=== PATIENT | female | born 1940 | race Caucasian/White ===

== ENCOUNTER 2023-11-05 17:54 | Emergency (ER) | payer MEDICARE, OTHER, SELFPAY ==
[2023-11-05 17:55] VITALS: BMI 28.5
[2023-11-05 18:03] VITALS: BP 104/54
[2023-11-05 18:42] LABS: COVID-19 Antigen Negative (Negative)
--- NOTE | 2023-11-05 19:12 | ED.GENMED ---
History of Present Illness
General
Chief Complaint: Breathing Problem
Source: patient and family
Exam Limitations: none
Time Seen by Provider: 11/05/23 18:59
Nursing documentation reviewed up to this point in time: agreed with
Travel History
Have you had any contact with someone who has COVID-19?: No
Do you have any symptoms of coronavirus? Fever > 100 degrees, chills, cough, shortness of breath, sore throat, loss of taste or smell, muscle aches, or headache?: Yes
Symptoms:: cough
History of Present Illness
History of Present Illness:
83-year-old female PAF on Eliquis hypertension followed by Dr. Pope's about 2 weeks of some leg cramps, few days of shortness of breath dyspnea on exertion chills some upper abdominal pain nausea headache
Nondrinker non-smoker no sick contacts, she has had decreased p.o. intake,
Past History
Past History
ED Past Medical History: Arrthythmia
ED Past Surgical History: Cholecystectomy and Gynecological
Social History
Tobacco: Non-smoker
Alcohol: None
Drug: None
Personal: Single
Living: with family
Employment: Employed
Review of Systems
Review of Systems
All Other Systems: Not applicable
Constitutional: Reports fatigue and chills
EENT: Reports no symptoms
Respiratory: Reports cough and trouble breathing
Cardiac: Reports no symptoms; Denies chest pain or syncope
ABD/GI: Reports abdominal pain and nausea
: Reports no symptoms
Musculoskeletal: Reports muscle stiffness
Skin: Reports no symptoms
Neurological: Reports headache and weakness
Endocrine: Reports no symptoms
Hematologic/Lymphatic: Reports no symptoms
Phy Exam
Physical Exam
Physical Exam:
Physical Exam
General: no apparent distress, not acutely ill
Neck: Lips are slightly dry
Heart: s1/s2 regular rate and rhythm, no murmur. equal radial pulses.
Lungs: no acute respiratory distress. clear bilaterally
Abdomen: Soft minimal epigastric tenderness no guarding or rebound
Neuro: alert and oriented. no focal neurological deficits
Skin: no rash
Psychiatric: well kept. interactive and cooperative
Extremities: Trace edema no calf tenderness
Scores
Heart Failure Risk
Heart Failure Risk Score: Not Applicable
Course
Orders/Labs/Results
Orders:
Orders
11/05/23 18:09
EKG [Electrocardiogram (*1)] Urgent
Reason for Study: Shortness of Breath
EKG- Treatment ONCE
11/05/23 18:11
COVID-19 Antigen Urgent
Source: Nasal Swab
INF RAPID [Influenza A+B Rapid Molecular] Urgent
INES Source: Nasal Swab
Specimen Description:
11/05/23 19:10
Electrocardiogram (*1) Stat
Reason for Study: Other
Other Reason for Exam: chest pain
CT Head W/o Iv Contrast Urgent
Comment:
Reason For Exam: headacehe
Cardiac Monitoring- Treatment ONCE
EKG- Treatment ONCE
IV Insert/Care/Rem.- Treatment PRN
0.9% Sodium Chloride 1000 ml [Nss] 1,000 ml IV BOLUS
CR Chest - 2 Views Urgent
Comment:
Reason For Exam: sob
11/05/23 19:31
Complete Blood Count/With Diff Urgent
Comprehensive Metabolic Panel Urgent
Lipase Urgent
Magnesium Urgent
NT-proBNP Urgent
TSH Urgent
Troponin I Urgent
11/05/23 21:23
Dexamethasone Sod Phosphate [Decadron] 10 mg IV NOW STA
Doxycycline [Vibramycin] 100 mg PO NOW STA
Ipratropium/Albuterol Sulfate [Duoneb] 3 ml INH R NOW ONE
US Periph Venous LOWER Ext Ayan Urgent
Comment:
Reason For Exam: pian
11/05/23 22:09
Ondansetron Injectable [Zofran] 4 mg IV NOW STA
Abnormal Lab Results
11/05/23
19:31
RBC 3.98 L 10^6/uL
(4.20-5.40)
Hct 35.3 L %
(37.0-47.0)
Absolute Lymphs (auto) 0.7 L 10^3/uL
(1.2-3.4)
Neutrophils % 81.3 H %
(42.2-75.2)
Lymphocytes % 11.2 L %
(20.5-51.1)
Sodium 133 L mmol/L
(135-145)
BUN 23 H mg/dl
(7-17)
Glucose 121 H mg/dl
(70-99)
Total Protein 6.2 L g/dl
(6.3-8.2)
11/05/23 19:31
11/05/23 19:31
Vital Signs
Initial and Last Documented VS:
Initial Vital Signs
Temp Pulse Resp BP Pulse Ox
98.7 F 98 20 104/54 98
11/05/23 18:03 11/05/23 18:03 11/05/23 18:03 11/05/23 18:03 11/05/23 18:03
Last Documented Vital Signs
Temp Pulse Resp BP Pulse Ox
98.7 F 95 20 133/64 94
11/05/23 18:03 11/05/23 22:16 11/05/23 18:03 11/05/23 23:05 11/05/23 23:06
MDM/Problems Addressed
Differential Diagnosis Includes:
Viral syndrome pneumonia heart failure doubt DVT PE as she is on Eliquis
MDM/Problems Addressed:
Fatigue cough chills nausea headache body aches
Chronic conditions affecting care: Arrhythmia
Acute Exacerbation and/or Progression of Chronic Illness: Arrhythmia
*Radiology
Radiology exam reviewed: preliminary read by ED provider
*EKG
Interpreted by ED Provider?: Yes
Interpretation: abnormal
Comparison EKG: no comparison EKG present
Heart Rate: 78
Rate: normal
Rhythm: sinus
Ischemia: non-specific ST changes
*Steam Box Tender Interpretation
Rate: normal
Interpretation: normal
Heart Rate: 78
Rhythm: sinus
*Critical Care Note
Total Time (30-74mins, 75-104mins- exclusive of procedures): Not Applicable
Update Note
Update Note:
9:[address] report noted chest x-ray noted EKG noted viral swabs noted
Reviewed with patient and daughter does have some cough, did have some chills will treat empirically with an antibiotic neb and a dose of steroids also have him leg pain, did miss her anticoagulant yesterday check Doppler
On exam she does have some mild bilateral calf pain
1045 patient had some nausea after nebulizer and the doxycycline improved with Zofran, Doppler reports are negative
Patient looking well, sitting upright no acute distress
ED Attending Note
-
Portions of this chart may have been created with voice recognition software.� Occasional wrong word or��sound alike� substitutions may have occurred due to the inherent limitations of voice recognition software.
Discharge Plan
Departure
Patient Disposition: Home (Routine Discharge)
Date of Disposition: 11/05/23
Time of Disposition: 23:17
Patient with high blood pressure during this ER visit?: No
Condition: Good
Discharge Problem:
Acute bronchitis
Instructions: Acute Bronchitis, Adult (DC)
Prescriptions:
New
doxycycline monohydrate 100 mg capsule
100 mg PO BID 14 Days Qty: 28 0RF
albuterol sulfate [ProAir HFA] 90 mcg/actuation HFA aerosol inhaler
2 puff inhalation Q4HPRN PRN (Reason: shortness of breath) Qty: 8.5 0RF
No Action
multivitamin [Daily Multiple] 1 EACH tablet
1 ea PO DAILY
aspirin 81 MG tablet,delayed release (DR/EC)
81 mg PO DAILY
cholecalciferol (vitamin D3) [Vitamin D3] 1,000 UNIT capsule
1,000 unit PO DAILY
coenzyme [id number] E [Co Q-10 (with Vit E)] 1 EACH capsule
1 ea PO DAILY
omega 6-gxl-jyf-fish oil [Fish Oil] 1 EACH capsule
1 ea PO DAILY
PreserVision AREDS-2 1 EACH capsule
1 ea PO DAILY
B12 Active 1,000 MCG tablet,chewable
1,000 mcg PO DAILY
ascorbic acid (vitamin C) [Vitamin C] 1,000 mg Tablet
1,000 mg PO DAILY
Referrals:
Su Fontaine NP [Family Provider] - Next open appointment
Interventions
Interventions:
ED- Fall Risk Assessment Last Done: 11/05/23 23:29
ED- Cardiac Assessment Last Done: 11/05/23 20:18
ED- Pulmonary Assessment Last Done: 11/05/23 20:18
[2023-11-05 19:21] VITALS: BP 132/59
[2023-11-05] MEDS: NSS 1000 IV (19:33)
[2023-11-05 19:54] LABS: % Basophils 0.6 % (0-2); % Eosinophils 0.5 % (0-6); % Immature Granulocytes 0.3 % (0-0.5); % Lymphocytes 11.2 % (20.5-51.1); % Monocytes 6.1 % (1.7-9.3); % Neutrophils 81.3 % (42.2-75.2); Absolute Lymphocytes 0.7 10^3/uL (1.2-3.4); Absolute Monocytes 0.4 10^3/uL (0.1-0.6); Hematocrit 35.3 % (37.0-47.0); Hemoglobin 12.3 g/dL (12.0-16.0); Mean Corp Hgb Conc. 34.8 g/dL (33.0-37.0); Mean Corpuscular Hgb 30.9 pg (27.0-31.0); Mean Corpuscular Volume 88.7 fL (81.0-99.0); Mean Platelet Volume 9.9 fL (7.4-10.4); Nucleated Red Blood Cells % 0 %; Platelet Count 153 10^3/uL (130-400); Red Blood Cell Count 3.98 10^6/uL (4.20-5.40); White Blood Cell Count 6.2 10^3/uL (4.8-10.8)
[2023-11-05 20:00] VITALS: BP 134/59
[2023-11-05 20:09] LABS: ALT (SGPT) 27 U/L (0-35); AST (SGOT) 32 U/L (14-36); Albumin 3.6 g/dl (3.5-5.0); Alkaline Phosphatase 80 U/L (38-126); Blood Urea Nitrogen 23 mg/dl (7-17); Calcium 8.7 mg/dl (8.4-10.2); Carbon Dioxide 25 mmol/L (22-30); Chloride 100 mmol/L (98-107); Glucose 121 mg/dl (70-99); Magnesium 2.2 mg/dl (1.6-2.3); Potassium 3.8 mmol/L (3.5-5.1); Sodium 133 mmol/L (135-145); Total Protein 6.2 g/dl (6.3-8.2); eGFR > 60.00
[2023-11-05 20:10] LABS: Lipase 88 U/L (23-300)
[2023-11-05 20:17] LABS: NT-proBNP 770 pg/ml; Troponin I 0.013 ng/ml
[2023-11-05 20:39] LABS: TSH 2.13 uIU/ml (0.47-4.68)
[2023-11-05] MEDS: VIBRAMYCIN 100 MG PO (21:36)
[2023-11-05] MEDS: DECADRON 10 MG IV (21:39)
[2023-11-05] MEDS: DUONEB 3 ML INH (21:49)
[2023-11-05] MEDS: ZOFRAN 4 MG IV (22:15)
[2023-11-05 23:05] VITALS: BP 133/64
== END 2023-11-05 23:46 | disposition home or self-care (01) ==
LOC: EMR 17:54
PROVIDERS: Student in an Organized Health Care Education/Training Program; EMERGENCY PHYSICIAN Emergency Medicine; FAMILY PHYSICIAN Internal Medicine
DX: J20.9 Acute bronchitis, unspecified (principal); M79.662 Pain in left lower leg; M79.661 Pain in right lower leg; R51.9 Headache, unspecified; R10.10 Upper abdominal pain, unspecified; R11.0 Nausea; R53.1 Weakness; R25.2 Cramp and spasm; Z11.52 Encounter for screening for COVID-19; I48.0 Paroxysmal atrial fibrillation; I10 Essential (primary) hypertension; Z79.01 Long term (current) use of anticoagulants; Z90.49 Acquired absence of other specified parts of digestive tract; Z88.8 Allergy status to other drugs, medicaments and biological substances
CPT/HCPCS: 99285; 96374; 96375; 96361; 94640; 70450; 71046; 80053; 83690; 83735; 83880; 84443; 84484; 85025; 87502; 87811; 93005; 93970

== ENCOUNTER 2023-11-07 18:07 | Inpatient (IN) | payer MEDICARE, OTHER, SELFPAY ==
[2023-11-07] VITALS (10 sets, daily range): BP systolic 107–147; BP diastolic 38–73; BMI 28.8; BMI 27.0
--- NOTE | 2023-11-07 13:18 | ED.GENMED ---
History of Present Illness
General
Chief Complaint: Dizziness
Source: patient and family
Time Seen by Provider: 11/07/23 12:37
Travel History
Have you had any contact with someone who has COVID-19?: No
Do you have any symptoms of coronavirus? Fever > 100 degrees, chills, cough, shortness of breath, sore throat, loss of taste or smell, muscle aches, or headache?: No
History of Present Illness
History of Present Illness:
83-year-old female presents emergency room complaining of confusion, weakness, difficulty ambulating, abdominal pain, nausea and vomiting. Patient was seen here couple days ago for similar symptoms. At that time her workup was essentially
unremarkable. Patient was discharged on doxycycline for presumed bronchitis. However her symptoms have worsened. Patient was seen by her primary care doctor today and sent to the emergency room. Daughter states that the patient typically is
quite independent and does everything for herself but over the past couple days cannot even go to the bathroom without assistance.
Past History
Past History
ED Past Medical History: Arrthythmia
ED Past Surgical History: Cholecystectomy and Gynecological
Social History
Tobacco: Non-smoker
Alcohol: None
Drug: None
Personal: Single
Living: with family
Employment: Employed
Phy Exam
Physical Exam
Physical Exam:
General: Awake, Alert, Oriented X3. Appears uncomfortable
Vitals: Rectal temp 103
Head: Atraumatic
Eyes: Pupils equal, EOMI
Throat: Airway intact, no exudates
Neck: Trachea midline
Lungs: Clear and equal b/l
Heart: Regular rate, no murmurs
Abd: Soft, tender to palpation bilateral lower abdominal quadrants but more pronounced on the right, No pulsatile mass
Neuro: Cranial nerves intact, muscle strength equal bilaterally, cerebellar exam normal
Skin: Warm, dry, no rash
Extremities: pulses equal b/l, no edema
Course
Orders/Labs/Results
Orders:
Orders
11/07/23 13:07
0.9% Sodium Chloride 500 ml [Nss] 500 ml IV BOLUS
11/07/23 13:17
Straight cath- Treatment ONCE
11/07/23 13:18
CT Abd/pelvis W Iv Cont Urgent
Comment:
Reason For Exam: abd pain, fever
11/07/23 13:43
Basic Metabolic Panel Urgent
Complete Blood Count/With Diff Urgent
Lactic Acid Q4H
Comment: CANCEL 2nd LACTIC ACID IF 1st LACTIC ACID IS LESS THAN 2
Urinalysis Reflex To Culture Urgent
Date Specimen was Collected: 11/07/23
Time Specimen was Collected: 13:34
Urine Microscopic Reflex Cult Urgent
Blood Culture Q30M
INES Source: Blood/Venous
Specimen Description:
Blood Culture Q30M
INES Source: Blood/Venous
Specimen Description:
Influenza A+B Rapid Molecular Urgent
INES Source: Nasal Swab
Specimen Description:
11/07/23 13:48
Acetaminophen [Tylenol] 650 mg PO NOW STA
11/07/23 Dinner
Regular
11/07/23 17:48
Admit/Transfer Patient As Directed
Co-Sign Provider:
Level of Care: Inpatient admission
Assign to:: Medical/Surgical
Physician / Group: jose m
Diagnosis: fever
Reason for Hospitalization: fever
Expected length of stay greater than two midnights?: Yes
ELOS- Estimated Length of Stay in days: 2
I certify the patient meets the requirements for IP care: Yes
Code Status As Directed
Resuscitation Status: Full Code
11/07/23 18:00
VANCOMYCIN Pharmacy to Dose [VANCOCIN Pharmacy to Dose] 1 each Pharmacy To Prepare [Call Pharmacy To Prepare] 0 ml IV PER PROTOCOL
11/07/23 18:03
Vancomycin [Vancocin] 2,000 mg 0.9% Sodium Chloride 500 ml [Nss] 500 ml IV NOW
11/07/23 18:40
Acetaminophen [Tylenol] 650 mg PO Q4HPRN PRN
Albuterol [ProAIR HFA INHALER] 2 puff INH R Q4HPRN PRN
11/07/23 18:40
VTE Contraindication Routine
VTE Mechanical Device Contraindication: Medical Contraindication
Pharmocologic Contraindication: Medical Contraindication
Activity As Directed
Activity Level: As Tolerated
Vital Signs As Directed
Frequency: Per unit guidelines
Tibia/Fibula, Left 2 View [CR Leg Tibia/fibula Left 2 Vw] Urgent
Comment:
Reason For Exam: pain
Tibia/Fibula, Right 2 View [CR Leg Tibia/fibula Right 2 Vw] Urgent
Comment:
Reason For Exam: pain
11/07/23 19:01
CRP [C-Reactive Protein] Routine
ESR [Erythrocyte Sed Rate] Routine
Procalcitonin Routine
PCT Algorithmm Indication: Sepsis
Uric Acid Routine
11/07/23 20:00
Apixaban [Eliquis] 5 mg PO BID
Piperacillin/Tazo 3.375 Gram [Zosyn] 3.375 gram in 50 ml IV Q6H
Vit C/Vit E/Lutein/Min/[place]-3 [Ocuvite Softgel] 1 cap PO BID
11/07/23 22:00
Metoprolol Xl [Toprol Xl] 12.5 mg PO HS
11/08/23 06:00
Complete Blood Count/With Diff IN AM
Comprehensive Metabolic Panel IN AM
11/08/23 13:00
Ascorbic Acid [Vitamin C] 1,000 mg PO DAILY@1300
Cholecalciferol (Vitamin D3) [VITAMIN D3 (cholecalciferol)] 25 mcg PO DAILY@1300
Cyanocobalamin [Vitamin B-12] 1,000 mcg PO DAILY@1300
Multivitamin [Theragran] 1 tablet PO DAILY@1300
Abnormal Lab Results
11/07/23
13:43
RBC 3.85 L 10^6/uL
(4.20-5.40)
Hgb 11.8 L g/dL
(12.0-16.0)
Hct 33.0 L %
(37.0-47.0)
Absolute Neuts (auto) 7.8 H 10^3/uL
(1.4-6.5)
Absolute Lymphs (auto) 0.5 L 10^3/uL
(1.2-3.4)
Neutrophils % 89.0 H %
(42.2-75.2)
Lymphocytes % 5.1 L %
(20.5-51.1)
Sodium 133 L mmol/L
(135-145)
Carbon Dioxide 21 L mmol/L
(22-30)
BUN 24 H mg/dl
(7-17)
Glucose 107 H mg/dl
(70-99)
Ur Occult Blood Reflex 2+ A
(Negative)
Urine RBC 3-6 A /HPF
(0-2)
11/07/23 13:43
11/07/23 13:43
Vital Signs
Initial and Last Documented VS:
Initial Vital Signs
Temp Pulse Resp BP Pulse Ox
99.3 F 87 16 132/73 99
11/07/23 11:47 11/07/23 11:47 11/07/23 11:47 11/07/23 11:47 11/07/23 11:47
Last Documented Vital Signs
Temp Pulse Resp BP Pulse Ox
98.2 F 63 15 107/47 98
11/07/23 18:31 11/07/23 18:30 11/07/23 18:30 11/07/23 18:00 11/07/23 18:30
MDM/Problems Addressed
Differential Diagnosis Includes:
Influenza, COVID, UTI, diverticulitis
MDM/Problems Addressed:
Patient presents with fever, confusion. Labs are reassuring. Urinalysis is not consistent with UTI. CT of the abdomen pelvis does not show any acute inflammatory process. Unclear source of patient's fever. Patient be hospitalized for monitoring
of cultures and further testing. Given unclear etiology of fever and the fact the patient is hemodynamically stable we will hold off on antibiotics pending culture results.
*Radiology
Radiology exam reviewed: radiology read reviewed
*Pulse Oximetry
Patient hypoxic: no
*Critical Care Note
Total Time (30-74mins, 75-104mins- exclusive of procedures): Not Applicable
Patient Management
Social determinants of health affecting care: Living situation
ED Attending Note
-
Portions of this chart may have been created with voice recognition software.� Occasional wrong word or��sound alike� substitutions may have occurred due to the inherent limitations of voice recognition software.
Discharge Plan
Departure
Patient Disposition: Admit
Date of Disposition: 11/07/23
Time of Disposition: 17:00
Admit to: Med/Surg
Presentation/result/management discussed w/ accepting MD/DO: Hospitalist
Condition: Fair
Discharge Problem:
Fever, Altered mental status
Interventions
Interventions:
*Risk Screen - Suicide Last Done: 11/07/23 11:49
*General Assessment Last Done: 11/07/23 11:49
*Neglect/Abuse Screening Last Done: 11/07/23 11:49
*Nursing Disposition Last Done: 11/07/23 18:52
DV-Xulfbt-Gfwyjvprek Assessment Last Done: 11/07/23 12:18
ED- Neurological Assessment Last Done: 11/07/23 12:18
ED Swallowing Screen Last Done: 11/07/23 12:18
Discharge Date and Time
Discharge Date/Time: 11/07/23 18:52
[2023-11-07 13:55] LABS: % Basophils 0.6 % (0-2); % Eosinophils 0.9 % (0-6); % Immature Granulocytes 0.5 % (0-0.5); % Lymphocytes 5.1 % (20.5-51.1); % Monocytes 3.9 % (1.7-9.3); Absolute Basophils 0.1 10^3/uL (0-0.2); Absolute Eosinophils 0.1 10^3/uL (0-0.7); Absolute Lymphocytes 0.5 10^3/uL (1.2-3.4); Absolute Monocytes 0.3 10^3/uL (0.1-0.6); Absolute Neutrophils 7.8 10^3/uL (1.4-6.5); Hemoglobin 11.8 g/dL (12.0-16.0); Mean Corp Hgb Conc. 35.8 g/dL (33.0-37.0); Mean Corpuscular Hgb 30.6 pg (27.0-31.0); Mean Corpuscular Volume 85.7 fL (81.0-99.0); Mean Platelet Volume 9.9 fL (7.4-10.4); Nucleated Red Blood Cells % 0 %; Platelet Count 203 10^3/uL (130-400); Red Blood Cell Count 3.85 10^6/uL (4.20-5.40); Red Cell Dist. Width 12.9 % (11.5-14.5); White Blood Cell Count 8.8 10^3/uL (4.8-10.8)
[2023-11-07] MEDS: NSS 500 IV (13:55)
[2023-11-07] MEDS: TYLENOL 650 MG PO (13:55)
[2023-11-07 14:02] LABS: Urine Albumin Trace (Neg - Trace); Urine Bilirubin Negative (Negative); Urine Character Clear (Clear); Urine Color Yellow; Urine Glucose Negative (Negative); Urine Ketone Negative (Negative); Urine Leukocyte Negative (Negative); Urine Nitrite Negative (Negative); Urine Occult Blood 2+ (Negative); Urine Urobilinogen Negative (Neg - 1+)
[2023-11-07 14:27] LABS: Urine Squamous Cell 0-2 /LPF (Few)
[2023-11-07 14:28] LABS: Urine Calcium Oxalate Crystals Present
[2023-11-07 14:48] LABS: Blood Urea Nitrogen 24 mg/dl (7-17); Calcium 8.8 mg/dl (8.4-10.2); Carbon Dioxide 21 mmol/L (22-30); Chloride 106 mmol/L (98-107); Estimated Creatinine Clearance 63 ml/min; Glucose 107 mg/dl (70-99); Lactic Acid 1.9 mmol/L (0.7-2.0); Potassium 3.6 mmol/L (3.5-5.1); Sodium 133 mmol/L (135-145); eGFR > 60.00
--- NOTE | 2023-11-07 17:59 | HPS.HSE ---
Family Physician
-
Family Physician: Su Fontaine
Chief Complaint
-
abdominal pain
History of Present Illness
83-year-old female past medical history of paroxysmal atrial fibrillation on Eliquis, hypertension, constipation, presenting with abdominal pain and nausea and vomiting, confusion, weakness, difficulty ambulating and leg pain
Patient came to the emergency room 2 days ago with leg cramps, shortness of breath on exertion, cough, chills, upper abdominal pain and nausea and headache. She was given nebulizer and steroid and discharged on doxycycline for acute bronchitis.
Since discharge she has continued to feel very weak. She has a history of constipation her whole life and had a large bowel movement 2 days ago with some improvement in her abdominal pain. She was noted to be confused yesterday and off balance
while walking. She did have an episode of vomiting and nausea. Denies any diarrhea. No urinary symptoms. She did have some cough intermittently but this has improved. Denies any shortness of breath. No neck pain.
Patient is been complaining of bilateral leg pain slightly superior to her bilateral ankles on the sides of the legs. Pain ongoing for a month. Pain is worse after prolonged ambulation and resolves with rest. She denies any trauma. She denies
any pain with weightbearing. She did have some lower extremity swelling and a rash on her bilateral lower extremities earlier today but it is now fading.
Denies smoking or alcohol or drugs.
Medical History
Past Medical History
Past Medical History: Reports Other (paroxysmal atrial fibrillation on Eliquis, hypertension, constipation)
Past Surgical History: Reports Other (History of right knee replacement)
Social History
Tobacco: Non-smoker
Alcohol: None
Drug: None
Family History
Family History: Not pertinent
Allergies / Home Medications
Allergies reflects when Allergies were last updated in [email or web address].
Home Medications with original date entered in [email or web address]
Allergy/Medication List:
Allergies
Allergy/AdvReac Type Severity Reaction Status Date / Time
Pfzeedn-OQU-IdV Reductase Allergy Mild Leg Cramps Verified 11/07/23 11:49
Inhibitor
[Iabyypn-Zht-Vxo Reductase
Inhibitor]
Home Medications
cholecalciferol (vitamin D3) 25 mcg (1,000 unit) capsule (Vitamin D3) 1,000 unit PO DAILY@1300 07/21/21
coenzyme M94-[id number] E 100 mg-5 unit capsule (Co Q-10 (with Vit E)) 1 ea PO DAILY@1300 07/21/21
mecobalamin (vitamin B12) 1,000 mcg chewable tablet (B12 Active) 1,000 mcg PO DAILY@1300 07/21/21
vit C 250 mg-vit E 90 mg-zinc 40 mg-copper 1 gb-gfumlz-fajmer capsule (PreserVision AREDS-2) 1 ea PO BID 07/21/21
ascorbic acid (vitamin C) 1,000 mg tablet (Vitamin C) 1,000 mg PO DAILY@1300 06/14/22
doxycycline monohydrate 100 mg capsule 100 mg PO BID 14 days #28 caps 11/05/23
albuterol sulfate 90 mcg/actuation aerosol inhaler (ProAir HFA) 2 puff inhalation R Q4HPRN PRN shortness of breath 11/07/23
apixaban 5 mg tablet (Eliquis) 5 mg PO BID 11/07/23
metoprolol succinate 25 mg tablet,extended release 24 hr 12.5 mg PO HS 11/07/23
multivitamin 1 tab PO DAILY@1300 11/07/23
Review of Systems
-
History Source: Patient
A 12 point ROS was completed and negative except as noted: Yes
Constitutional: Reports No Symptoms
EENT: Reports No Symptoms
Respiratory: Reports No Symptoms
Cardiac: Reports No Symptoms
Abdomen/GI: Reports See HPI
: Reports No Symptoms
Musculoskeletal: Reports See HPI
Skin: Reports No Symptoms
Neurological: Reports No Symptoms
Endocrine: Reports No Symptoms
Hematologic/Lymphatic: Reports No Symptoms
Psych: Reports No Symptoms
Physical Exam
Vital Signs
Vital Signs
Temp Pulse Resp BP Pulse Ox
103 F H 77 18 112/48 98
11/07/23 13:10 11/07/23 17:45 11/07/23 17:45 11/07/23 17:00 11/07/23 17:45
Physical Exam
General: Well Developed, Well Nourished and No Apparent Distress
HEENT: NormoCephalic, Moist mucous membranes and Atraumatic
Respiratory: Clear
Cardiac: S1/S2 and Regular Rhythm; No Murmur or Rub
GI: Soft, Non Distended, Normal Bowel Sounds and Tender; No Organomegaly
Rectal: Deferred by Provider
Musculoskeletal: No Clubbing, No Cyanosis and No Edema
Skin: No Rash
Neuro: Nonfocal/grossly intact
Laboratory Results
-
11/07/23 13:43
11/07/23 13:43
Laboratory Results
Lactic Acid 1.9 mmol/L (0.7-2.0) 11/07/23 13:43
Data Reviewed
-
Lab Data: Labs Reviewed by me
Old Records: Reviewed
Impression/Plan
-
IMPRESSION:
PLAN:
# Fever of unknown etiology, possibly gastroenteritis versus rule out bacteremia
-Lungs sound clear
-Negative for influenza today and 2 days ago
-Negative for COVID 2 days ago
-Chest x-ray -2 days ago
-CT abdomen pelvis without acute abnormalities shows stable pulmonary nodule, tiny pericardial effusion, small hiatal hernia, bilateral adrenal masses likely benign adenomas, progressed fecal material throughout the colon, diverticulosis which is
stable
-Urinalysis unremarkable
-Check blood cultures
-No evidence of intra-abdominal infection on CAT scan
-Empiric vancomycin/Zosyn
# Abdominal pain likely secondary to constipation
-Patient had bowel movement 2 days ago which is more frequent than her baseline
-CT scan does show progressed fecal matter throughout the colon
# Bilateral lower extremity pain with resolving swelling/rash as per daughter
-Tender to palpation of both ankle medial/lateral calf area
-venous US negative for DVT 2 days ago
-Check bilateral tibia/fibular x-rays
-Wondering if she could have underlying rheumatologic process
-Check ESR/CRP, procalcitonin, uric acid,
Paroxysmal atrial fibrillation
-Continue Eliquis
-Continue metoprolol
Essential hypertension
Full code
DVT prophylaxis�Eliquis
Regular diet
[2023-11-07] MEDS: VANCOCIN 540 MG IV (18:27)
[2023-11-07 19:16] LABS: Erythrocyte Sed Rate 36 mm/hour (0-20)
[2023-11-07 19:24] LABS: Uric Acid 4.1 mg/dl (2.5-6.2)
--- NOTE | 2023-11-07 19:28 | PHA.VAN.IN ---
Assessment
- Assessment
Renal Function: Appears similar to baseline
Concomitant Antimicrobials: ZOSYN
- Previous Dosing Experience
Previous Regimen: NONE
AUC Dosing Plan
- Dosing Variables
Dosing Weight (kg): 76
Dosing CrCl (ml/min): 63
Vd coefficient (L/kg): 0.7
- Empiric Dosing
Initial / Loading Dose: 2GM
Maintenance Regimen: 1500MG IV Q24H
Estimated AUC (mcg*h/mL): 519
Estimated Peak (mcg*h/mL): 37.9
Estimated Trough (mcg/ml): 10.6
Estimated Half Life (H): 12.2
Pharmacokinetics Vancomycin I
- -
Patient Age: 83
Vancomycin Day #: 1
Indication: Gi / Intra-Abdominal (FUO)
Requesting Provider: ERAN
Height / Weight:
Height 5 ft 4 in
Actual Weight 76 kg
- Vital Signs / Lab Results
Temp Pulse Resp BP Pulse Ox
98.2 F 63 15 107/47 98
11/07/23 18:31 11/07/23 18:30 11/07/23 18:30 11/07/23 18:00 11/07/23 18:30
Lab Results - Hematology
11/07/23
13:43
WBC 8.8
Lab Results - Chemistry
11/07/23
13:43
BUN 24 H
Creatinine 0.7
Estimated Creat Clear 63
11/07/23 11/07/23
13:43 17:30
Lactic Acid 1.9 Cancelled
Lab Results - Urine
11/07/23
13:43
Urine Nitrite (Reflex) Negative
Leukocyte Esterase Rfl Negative
Urine WBC (Reflex) 3-5
Ur Squamous Epith Cells 0-2
Microbiology Results
02/08/24 13:43 Influenza Types A & B (ASHER) - Final
Nasal Swab Negative for Influenza A & B, NAAT
Negative results must be combined with clinical observations
and patient history.
Nucleic Acid Amplification test (NAAT)performed on the
[employer] platform.
[2023-11-07 19:40] LABS: Procalcitonin 0.12 ng/ml (0.0-0.25)
[2023-11-07] MEDS: BENADRYL 25 MG IV (20:29)
--- NOTE | 2023-11-07 20:39 | PTCARENOTE ---
Patient arrived from ED, was able to walk into room with assist. Patient unsteady on her feet, was able to full participate with admission. Patient's daughter at bedside expressed concern her mother isn't herself. Provider notified of family's
concerns in regard to a stroke. Patient brought down to CT scan, started c/o itching, while Vancomycin was running. Infusion stopped and provider notified. Patient has flat red macular rash on her scalp, neck and chest.
[2023-11-07] MEDS: OCUVITE SOFTGEL 1 CAP PO (20:52)
[2023-11-07] MEDS: ELIQUIS 5 MG PO (20:52)
[2023-11-07] MEDS: ZOSYN 50 IV (20:52)
[2023-11-07] MEDS: TOPROL XL 12.5 MG PO (21:39)
[2023-11-08] MEDS: ZOSYN 50 IV ×4 (01:11→20:30)
[2023-11-08 06:00] VITALS: BMI 27.3
[2023-11-08 07:57] VITALS: BP 120/52
[2023-11-08 08:16] LABS: % Basophils 0.6 % (0-2); % Eosinophils 3.5 % (0-6); % Immature Granulocytes 0.3 % (0-0.5); % Monocytes 6.3 % (1.7-9.3); % Neutrophils 76.3 % (42.2-75.2); Absolute Eosinophils 0.2 10^3/uL (0-0.7); Absolute Lymphocytes 0.8 10^3/uL (1.2-3.4); Absolute Monocytes 0.4 10^3/uL (0.1-0.6); Absolute Neutrophils 4.8 10^3/uL (1.4-6.5); Hematocrit 30.3 % (37.0-47.0); Hemoglobin 10.4 g/dL (12.0-16.0); Mean Corp Hgb Conc. 34.3 g/dL (33.0-37.0); Mean Corpuscular Hgb 29.9 pg (27.0-31.0); Mean Corpuscular Volume 87.1 fL (81.0-99.0); Mean Platelet Volume 10.7 fL (7.4-10.4); Nucleated Red Blood Cells % 0 %; Platelet Count 141 10^3/uL (130-400); Red Blood Cell Count 3.48 10^6/uL (4.20-5.40); Red Cell Dist. Width 13.3 % (11.5-14.5); White Blood Cell Count 6.3 10^3/uL (4.8-10.8)
[2023-11-08 08:36] LABS: ALT (SGPT) 22 U/L (0-35); AST (SGOT) 34 U/L (14-36); Albumin 2.9 g/dl (3.5-5.0); Alkaline Phosphatase 74 U/L (38-126); Blood Urea Nitrogen 21 mg/dl (7-17); Calcium 8.1 mg/dl (8.4-10.2); Carbon Dioxide 23 mmol/L (22-30); Chloride 110 mmol/L (98-107); Estimated Creatinine Clearance 54 ml/min; Glucose 101 mg/dl (70-99); Potassium 3.4 mmol/L (3.5-5.1); Sodium 135 mmol/L (135-145); Total Bilirubin 0.7 mg/dl (0.2-1.3); Total Protein 5.4 g/dl (6.3-8.2); eGFR > 60.00
[2023-11-08] MEDS: ELIQUIS 5 MG PO ×2 (09:09→20:29)
[2023-11-08] MEDS: OCUVITE SOFTGEL 1 CAP PO ×2 (09:09→20:30)
--- NOTE | 2023-11-08 10:49 | PHA.VAN.FU ---
Vancomycin Assessment / Plan
- Assessment
Renal Function: Stable
WBC's are: WNL
Concomitant Antimicrobials: piperacillin/tazobactam
- Dosing Plan
Adjust Regimen to: Vanc 1250mg Q24H - first dose now then 0600
New Regimen Predicts: AUC (523), Peak (35.8), Trough (11.8)
Dosing Comments: patient has not yet received a dose today
- Monitoring Plan
No level(s) ordered at this time: consider levels in next few days
- Follow Up
Pharmacy will continue to follow.
Vancomycin Follow UP
- -
Patient Age: 83
Vancomycin Day #: 2
Indication: Gi / Intra-Abdominal
Requesting Provider: Dr. Ivey
Pertinent Antimicrobial Allergies:
no pertinent antibiotic allergies
Height / Weight:
Height 5 ft 4 in
Actual Weight 72.178 kg
- Vital Signs / Lab Results
Temp Pulse Resp BP Pulse Ox
100.1 F 76 12 120/52 94
11/08/23 07:57 11/08/23 07:57 11/08/23 07:57 11/08/23 07:57 11/08/23 09:21
Lab Results - Hematology
11/07/23 11/08/23
13:43 07:38
WBC 8.8 6.3
Lab Results - Chemistry
11/07/23 11/08/23
13:43 07:38
BUN 24 H 21 H
Creatinine 0.7 0.8
Estimated Creat Clear 63 54
Albumin 2.9 L
11/07/23 11/07/23
13:43 17:30
Lactic Acid 1.9 Cancelled
Lab Results - Urine
11/07/23
13:43
Urine Nitrite (Reflex) Negative
Leukocyte Esterase Rfl Negative
Ur Squamous Epith Cells 0-2
Microbiology Results
11/07/23 13:43 Influenza Types A & B (ASHER) - Final
Nasal Swab Negative for Influenza A & B, NAAT
Negative results must be combined with clinical observations
and patient history.
Nucleic Acid Amplification test (NAAT)performed on the
[employer] platform.
[2023-11-08] MEDS: VANCOCIN 275 MG IV (11:21)
[2023-11-08] MEDS: VITAMIN C 1000 MG PO (12:33)
[2023-11-08] MEDS: VITAMIN D3 (cholecalciferol) 25 MCG PO (12:33)
[2023-11-08] MEDS: THERAGRAN 1 TABLET PO (12:33)
[2023-11-08] MEDS: VITAMIN B-12 1000 MCG PO (12:33)
--- NOTE | 2023-11-08 12:33 | W.PN.HOSP.TC ---
Today's Communication/Plan
-
DC vancomycin. Continue Zosyn. Continue bowel regimen.
DC planning
Assessment / Plan
Assessment / Plan
# Fever
-And only symptoms now other GI-she is constipated, pain with bowel movement, left lower quadrant tenderness raising concern for stercoral coral colitis. CT of the abdomen pelvis shows moderate fecal material in the colon. There is mild
diverticulosis. No bowel wall thickening noted but clinically like proctitis/colitis.
-Treat with empirical Zosyn and bowel regimen and follow progress.
-Lungs sound clear
-Negative for influenza today and 2 days ago
-Negative for COVID 2 days ago
-Chest x-ray -2 days ago without any acute disease
-CT abdomen pelvis without acute abnormalities shows stable pulmonary nodule, tiny pericardial effusion, small hiatal hernia, bilateral adrenal masses likely benign adenomas, progressed fecal material throughout the colon, diverticulosis which is
stable
-Urinalysis unremarkable
-Check blood cultures-pending
-DC vancomycin
# Abdominal pain likely secondary to constipation
-Patient had bowel movement 2 days ago which is more frequent than her baseline
-CT scan does show progressed fecal matter throughout the colon
# Bilateral lower extremity pain with resolving swelling/rash as per daughter
-No rash seen today
-venous US negative for DVT 2 days ago
-bilateral tibia/fibular x-rays no acute fractures or dislocation
-Patient currently without any pain at rest.
Continue to follow
Paroxysmal atrial fibrillation
-Continue Eliquis
-Continue metoprolol
Essential hypertension
Full code
DVT prophylaxis�Eliquis
Regular diet
Anticipated Discharge: 24 - 48 hours
Subjective/Interval History
-
Date of Service: November 08, 2023
Today without fever
No nausea or vomiting
She is normally constipated sometimes she can go without bowel movement for a week.
Her abdominal pain started 4 days ago. She thought she was constipated. Saturday she had a good bowel movement and the pain actually resolved.
Then she tried to have bowel movement since and she is having abdominal pain again .
Pain with bowel movement . Without attempts at bowel movement, She is without abdominal pain. No nausea vomiting. Appetite is poor.
Objective Data
-
Labs:
Laboratory Results
11/08/23
07:38
WBC 6.3
Hgb 10.4 L
Hct 30.3 L
Plt Count 141 D
Sodium 135
Potassium 3.4 L
Chloride 110 H
Carbon Dioxide 23
BUN 21 H
Creatinine 0.8
Glucose 101 H
Calcium 8.1 L
Total Bilirubin 0.7
AST 34
ALT 22
Alkaline Phosphatase 74
Vital Signs:
Vital Signs
Temp Pulse Resp BP Pulse Ox
100.1 F 76 12 120/52 94
11/08/23 07:57 11/08/23 07:57 11/08/23 07:57 11/08/23 07:57 11/08/23 09:21
I&O
11/07/23 11/08/23 11/09/23
06:59 06:59 06:59
Output Total 750 / 750
Balance -750 / -750
Review of Systems
-
Constitutional: Denies Fever (today)
EENT: Denies Sore Throat
Respiratory: Reports Cough (clear to no phlegm)
Cardiac: Denies Chest Pain
Neuro: Denies Dizzy
Physical Exam
-
General: No Apparent Distress
HEENT: Moist Mucous Membranes
Respiratory: Clear to Auscultation
Cardiac: Regular Rhythm and S1/S2
GI: Soft, Nondistended, Normal Bowel Sounds and Tender (in LLQ)
Neuro: AO x 3
Psych: Calm
Data Reviewed
-
CT Scan: Report Reviewed by me (CT A/P)
Labs: Labs Reviewed by me
[2023-11-08] MEDS: COLACE 100 MG PO ×2 (13:34→20:29)
[2023-11-08] MEDS: MIRALAX 17 GRAMS PO (13:34)
--- NOTE | 2023-11-08 14:58 | CM ---
Alert awake oriented patient who lives with her Renaldo ,Ethel daughter and grandson in a 2 story home with 0 step to enter and bath/ bed room on first floor. She is independent in driving and all activities of daily living.Offered VN she
declined.
No SNF/VN hx
Pharmacy [facility]
PCP Dr Su Fontaine
PLAN Home no needs
[2023-11-08 15:50] VITALS: BP 133/58
[2023-11-08] MEDS: SENOKOT 8.59999999999999964 MG PO (20:30)
[2023-11-08] MEDS: TOPROL XL 12.5 MG PO (21:07)
[2023-11-08 23:29] VITALS: BP 123/56
[2023-11-09] MEDS: ZOSYN 50 IV ×3 (01:57→13:56)
[2023-11-09] MEDS: COLACE 100 MG PO (07:51)
[2023-11-09] MEDS: MIRALAX 17 GRAMS PO (07:51)
[2023-11-09] MEDS: SENOKOT 8.59999999999999964 MG PO (07:51)
[2023-11-09] MEDS: OCUVITE SOFTGEL 1 CAP PO (07:51)
[2023-11-09] MEDS: ELIQUIS 5 MG PO (07:51)
[2023-11-09] MEDS: FLUSH (NSS) 1 FLUSH IV ×2 (07:52→13:56)
[2023-11-09 07:56] VITALS: BP 133/61
[2023-11-09] MEDS: VITAMIN C 1000 MG PO (13:02)
[2023-11-09] MEDS: THERAGRAN 1 TABLET PO (13:02)
[2023-11-09] MEDS: VITAMIN D3 (cholecalciferol) 25 MCG PO (13:02)
[2023-11-09] MEDS: VITAMIN B-12 1000 MCG PO (13:02)
--- NOTE | 2023-11-09 14:18 | W.DS.TRANS ---
DC Summary - Manager Balance
-
Discharge Instructions:
Discharge Diagnosis/Procedures Fever with abdominal pain -possible stercoral
colitis ; chronic constipation
Diet Regular
Activity As tolerated
Driving Restrictions As prior to admission
Bathing Restrictions None
Instructions:
Stand-Alone Forms:
Changes to Home Medications: Yes
Discharge Medications:
DC Medications w/original date entered in [facility]
cholecalciferol (vitamin D3) 25 mcg (1,000 unit) capsule (Vitamin D3) 1,000 unit PO DAILY@1300 07/21/21
coenzyme R70-lctdmta E 100 mg-5 unit capsule (Co Q-10 (with Vit E)) 1 ea PO DAILY@1300 07/21/21
mecobalamin (vitamin B12) 1,000 mcg chewable tablet (B12 Active) 1,000 mcg PO DAILY@1300 07/21/21
vit C 250 mg-vit E 90 mg-zinc 40 mg-copper 1 rj-rxsbay-znckif capsule (PreserVision AREDS-2) 1 ea PO BID 07/21/21
ascorbic acid (vitamin C) 1,000 mg tablet (Vitamin C) 1,000 mg PO DAILY@1300 06/14/22
albuterol sulfate 90 mcg/actuation aerosol inhaler (ProAir HFA) 2 puff inhalation R Q4HPRN PRN shortness of breath 11/07/23
apixaban 5 mg tablet (Eliquis) 5 mg PO BID 11/07/23
metoprolol succinate 25 mg tablet,extended release 24 hr 12.5 mg PO HS 11/07/23
multivitamin 1 tab PO DAILY@1300 11/07/23
amoxicillin 875 mg-potassium clavulanate 125 mg tablet 1 tab PO BID #14 tabs 11/09/23
docusate sodium 100 mg capsule 100 mg PO BID #60 caps 11/09/23
polyethylene glycol 3350 17 gram oral powder packet (HealthyLax) 17 g PO DAILY #30 ea 11/09/23
sennosides 8.6 mg tablet (Senna Lax) 8.6 mg PO HSPRN PRN Constipation #30 tabs 11/09/23
Home Medication Changes
New medications -
-Augmentin, Colace, senna, MiraLAX
Pending Results: No
--- NOTE | 2023-11-09 14:23 | W.PN.HOSP.TC ---
Today's Communication/Plan
-
DC
Assessment / Plan
Assessment / Plan
# Fever
And only symptoms she has is GI-she is constipated, pain with bowel movement, left lower quadrant tenderness raising concern for stercoral coral colitis. CT of the abdomen pelvis shows moderate fecal material in the colon. There is mild
diverticulosis. No bowel wall thickening noted but clinically like proctitis/colitis.
-Treat with empirical Zosyn and bowel regimen and follow progress.
-Lungs sound clear
-Negative for influenza today and 2 days ago
-Negative for COVID 2 days ago
-Chest x-ray -2 days ago without any acute disease
-CT abdomen pelvis without acute abnormalities shows stable pulmonary nodule, tiny pericardial effusion, small hiatal hernia, bilateral adrenal masses likely benign adenomas, progressed fecal material throughout the colon, diverticulosis which is
stable
-Urinalysis unremarkable
- blood cultures-neg
Resolved fevers. Abdominal pain and tenderness resolved. Switch to oral Augmentin and continue for 1 more week.
# Abdominal pain likely secondary to constipation
-Patient had bowel movement 2 days ago which is more frequent than her baseline
-CT scan does show progressed fecal matter throughout the colon
-Bowel movement with initiation of bowel regimen. Continue at home.
# Bilateral lower extremity pain with resolving swelling/rash as per daughter
-No rash seen today
-venous US negative for DVT 2 days ago
-bilateral tibia/fibular x-rays no acute fractures or dislocation
-Patient currently without any pain at rest.
Continue to follow
Paroxysmal atrial fibrillation
-Continue Eliquis
-Continue metoprolol
Essential hypertension
Medically stable for discharge home on bowel regimen antibiotics.
Anticipated Discharge: Today
Subjective/Interval History
-
Date of Service: November 09, 2023
No further abdominal pain. Had a good bowel movement today.
No nausea vomiting. Tolerating diet. No further fevers.
Objective Data
-
Vital Signs:
Vital Signs
Temp Pulse Resp BP Pulse Ox
98.2 F 80 16 133/61 95
11/09/23 07:56 11/09/23 07:56 11/09/23 07:56 11/09/23 07:56 11/09/23 07:56
I&O
11/08/23 11/09/23 11/10/23
06:59 06:59 06:59
Intake Total 100 / 100
Output Total 750 / 750
Balance -750 / -750 100 / 100
Review of Systems
-
Constitutional: Denies Fever or Chills
EENT: Denies Sore Throat
Respiratory: Denies Cough or Trouble Breathing
Cardiac: Denies Chest Pain
Abdomen/GI: Denies Abdominal Pain, Nausea, Vomiting or Diarrhea
Neuro: Denies Dizzy
Physical Exam
-
General: No Apparent Distress
HEENT: Moist Mucous Membranes
Cardiac: Regular Rhythm and S1/S2; Negative Tachycardic
GI: Soft, Nontender (no tenderness today), Nondistended and Normal Bowel Sounds
Neuro: AO x 3
Psych: Calm
== END 2023-11-09 15:03 | disposition home or self-care (01) | DRG 392 ==
LOC: 4 EAST ACU 18:07
PROVIDERS: ADMITTING PHYSICIAN Hospitalist; ATTENDING PHYSICIAN Internal Medicine; EMERGENCY PHYSICIAN Emergency Medicine; FAMILY PHYSICIAN Internal Medicine
DX: K52.89 Other specified noninfective gastroenteritis and colitis (principal); K59.00 Constipation, unspecified; I48.0 Paroxysmal atrial fibrillation; I10 Essential (primary) hypertension; Z79.01 Long term (current) use of anticoagulants
CPT/HCPCS: 51701; 70450; 71046; 73590; 74177; 80048; 80053; 81003; 81015; 83605; 83690; 83735; 83880; 84145; 84443; 84484; 84550; 85025; 85652; 86140; 87040; 87502; 87811; 93005; 99285; Q9967

== ENCOUNTER → 2023-12-03 16:30 | Outpatient (REF) | payer MEDICARE, OTHER, SELFPAY | LOC: RAD 16:30 | PROVIDERS: ATTENDING PHYSICIAN Internal Medicine Gastroenterology; FAMILY PHYSICIAN Internal Medicine | DX: K59.09 Other constipation (principal) | CPT/HCPCS: 74018 ==

== ENCOUNTER → 2023-12-12 06:37 | Day surgery (SDC) | payer MEDICARE, OTHER, SELFPAY | LOC: GI 06:37 | PROVIDERS: ATTENDING PHYSICIAN Internal Medicine Gastroenterology | DX: R19.7 Diarrhea, unspecified (principal); K64.8 Other hemorrhoids; K57.30 Diverticulosis of large intestine without perforation or abscess without bleeding; R19.5 Other fecal abnormalities; D12.0 Benign neoplasm of cecum; K22.89 Other specified disease of esophagus; K31.89 Other diseases of stomach and duodenum; K29.50 Unspecified chronic gastritis without bleeding | CPT/HCPCS: 45385; 45380; 43239; 88305; 88342 ==

== ENCOUNTER → 2024-05-15 15:35 | Outpatient (REF) | payer MEDICARE, OTHER, SELFPAY | LOC: RAD 15:35 | PROVIDERS: ATTENDING PHYSICIAN Specialist; FAMILY PHYSICIAN Internal Medicine | DX: N28.89 Other specified disorders of kidney and ureter (principal) | CPT/HCPCS: 76775 ==

== ENCOUNTER → 2024-10-14 14:32 | Outpatient (REF) | payer MEDICARE, OTHER, SELFPAY | LOC: WDC 14:32 | PROVIDERS: ATTENDING PHYSICIAN Internal Medicine | DX: Z12.31 Encounter for screening mammogram for malignant neoplasm of breast (principal) | CPT/HCPCS: 77063; 77067 ==

== ENCOUNTER → 2025-02-03 09:53 | Outpatient (REF) | payer MEDICARE, OTHER, SELFPAY ==
[2025-02-03 10:42] LABS: % Eosinophils 1.7 % (0-6); % Immature Granulocytes 0.3 % (0-0.5); % Lymphocytes 23.8 % (20.5-51.1); % Monocytes 7.9 % (1.7-9.3); % Neutrophils 65.3 % (42.2-75.2); Absolute Basophils 0.1 10^3/uL (0-0.2); Absolute Eosinophils 0.1 10^3/uL (0-0.7); Absolute Lymphocytes 1.8 10^3/uL (1.2-3.4); Absolute Monocytes 0.6 10^3/uL (0.1-0.6); Hematocrit 39.1 % (37.0-47.0); Hemoglobin 13.1 g/dL (12.0-16.0); Mean Corp Hgb Conc. 33.5 g/dL (33.0-37.0); Mean Corpuscular Hgb 30.5 pg (27.0-31.0); Mean Corpuscular Volume 90.9 fL (81.0-99.0); Mean Platelet Volume 10.2 fL (7.4-10.4); Nucleated Red Blood Cells % 0 %; Platelet Count 202 10^3/uL (130-400); Red Cell Dist. Width 12.9 % (11.5-14.5); White Blood Cell Count 7.6 10^3/uL (4.8-10.8)
[2025-02-03 11:24] LABS: Vitamin D, 25-OH*** 51.4 ng/mL (30-80)
[2025-02-03 11:38] LABS: Glycohemoglobin (HgbA1c) 5.7 % (4.0-5.6)
[2025-02-03 11:57] LABS: ALT (SGPT) 12 U/L (0-35); AST (SGOT) 21 U/L (14-36); Albumin 4.7 g/dl (3.5-5.0); Alkaline Phosphatase 83 U/L (38-126); Blood Urea Nitrogen 27 mg/dl (7-17); Calcium 9.8 mg/dl (8.4-10.2); Carbon Dioxide 27 mmol/L (22-30); Chloride 107 mmol/L (98-107); Glucose 104 mg/dl (70-99); HDL Cholesterol 56 mg/dl; LDL Cholesterol, Calculated 203 mg/dl; Potassium 4.8 mmol/L (3.5-5.1); Sodium 144 mmol/L (135-145); Total Cholesterol 290 mg/dl (50-199); Total Protein 7.4 g/dl (6.3-8.2); Triglyceride 158 mg/dl (10-149); Very Low Density Lipoprotein 31 mg/dl (0-30); eGFR > 60.00
== END ==
LOC: REG 09:53
PROVIDERS: ATTENDING PHYSICIAN Internal Medicine
DX: I25.10 Atherosclerotic heart disease of native coronary artery without angina pectoris (principal); E78.2 Mixed hyperlipidemia; R73.09 Other abnormal glucose; Z79.01 Long term (current) use of anticoagulants; D41.01 Neoplasm of uncertain behavior of right kidney; E55.9 Vitamin D deficiency, unspecified
CPT/HCPCS: 36415; 80053; 80061; 82306; 83036; 85025

== ENCOUNTER → 2025-03-01 11:16 | Outpatient (REF) | payer MEDICARE, OTHER, SELFPAY ==
[2025-03-01 14:21] LABS: Microalbumin, Random Urine 1.4 mg/dl (0.6-1.7); Microalbumin/creatinine Ratio 35.5 mg/g
== END ==
LOC: RAD 11:16
PROVIDERS: ATTENDING PHYSICIAN Internal Medicine
DX: R22.42 Localized swelling, mass and lump, left lower limb (principal); K59.00 Constipation, unspecified; R29.898 Other symptoms and signs involving the musculoskeletal system; R73.01 Impaired fasting glucose; E11.9 Type 2 diabetes mellitus without complications
CPT/HCPCS: 71046; 74018; 76882; 82043; 82570

== ENCOUNTER → 2025-03-18 11:31 | Outpatient (REF) | payer MEDICARE, OTHER, SELFPAY | LOC: RAD 11:31 | PROVIDERS: ATTENDING PHYSICIAN Internal Medicine Gastroenterology; FAMILY PHYSICIAN Internal Medicine | DX: T18.9XXA Foreign body of alimentary tract, part unspecified, initial encounter (principal) | CPT/HCPCS: 71046; 74018 ==

== ENCOUNTER → 2025-08-24 10:50 | Outpatient (REF) | payer MEDICARE, OTHER, SELFPAY ==
[2025-08-24 12:06] LABS: Hematocrit 41.2 % (37.0-47.0); Hemoglobin 13.5 g/dL (12.0-16.0); Mean Corp Hgb Conc. 32.8 g/dL (33.0-37.0); Mean Corpuscular Volume 92.4 fL (81.0-99.0); Nucleated Red Blood Cells % 0 %; Platelet Count 173 10^3/uL (130-400); Red Cell Dist. Width 12.7 % (11.5-14.5)
[2025-08-24 14:14] LABS: ALT (SGPT) 12 U/L (0-35); AST (SGOT) 20 U/L (14-36); Albumin 4.3 g/dl (3.5-5.0); Alkaline Phosphatase 87 U/L (38-126); Blood Urea Nitrogen 17 mg/dl (7-17); Calcium 9.4 mg/dl (8.4-10.2); Carbon Dioxide 30 mmol/L (22-30); Chloride 106 mmol/L (98-107); Glucose 91 mg/dl (70-99); HDL Cholesterol 45 mg/dl; LDL Cholesterol, Calculated 186 mg/dl; Sodium 141 mmol/L (135-145); Total Protein 7.2 g/dl (6.3-8.2); Very Low Density Lipoprotein 41 mg/dl (0-30); eGFR > 60.00
[2025-08-24 14:39] LABS: Potassium 4.2 mmol/L (3.5-5.1)
[2025-08-25 08:10] LABS: Glycohemoglobin (HgbA1c) 5.9 % (4.0-5.9)
== END ==
LOC: REG 10:50
PROVIDERS: ATTENDING PHYSICIAN Internal Medicine
DX: I10 Essential (primary) hypertension (principal); Z00.00 Encounter for general adult medical examination without abnormal findings; R73.01 Impaired fasting glucose; E78.2 Mixed hyperlipidemia; R50.9 Fever, unspecified
CPT/HCPCS: 36415; 80053; 80061; 83036; 84443; 85025